=== PATIENT | male | born 1945 | race Caucasian/White ===

== ENCOUNTER → 2016-05-09 | Outpatient (CLI) | payer MEDICARE, OTHER | LOC: SL 13:00 | PROVIDERS: ATTEND Family Medicine | DX: G47.33 Obstructive sleep apnea (adult) (pediatric) (principal) ==

== ENCOUNTER → 2016-10-02 | Outpatient (CLI) | payer MEDICARE, OTHER | END | disposition home or self-care (01) | LOC: GMAB 14:54 | PROVIDERS: ATTEND Family Medicine | DX: R06.02 Shortness of breath (principal) ==

== ENCOUNTER → 2017-01-22 | Outpatient (CLI) | payer MEDICARE, OTHER ==
--- NOTE | 2017-01-22 10:04 | RAD ---
EXAM DESCRIPTION: Pelvis CLINICAL HISTORY: 71 years, Male, HIP PAIN COMPARISON: FINDINGS: No fracture. Pelvic ring intact. Moderate narrowing and spurring superior laterally right hip. Surgical clips over the scrotal region noted. IMPRESSION: Mild degenerative change. No fracture. Electronically signed by: Callum Bell MD 01/22/2017 10:02 AM CDT
--- NOTE | 2017-01-22 10:05 | RAD ---
EXAM DESCRIPTION: Knee, left Complete CLINICAL HISTORY: 71 years, Male, KNEE PAIN COMPARISON: FINDINGS: No fracture or dislocation. Moderate narrowing the patellofemoral joint space with superior lateral spurring. Slight narrowing medially. IMPRESSION: Moderate degenerative change without fracture or dislocation Electronically signed by: Callum Bell MD 01/22/2017 10:04 AM CDT
== END | disposition home or self-care (01) ==
LOC: RAD 08:40
PROVIDERS: ATTEND Orthopaedic Surgery
DX: M25.562 Pain in left knee (principal); M25.552 Pain in left hip

== ENCOUNTER → 2017-01-29 | Outpatient (CLI) | payer MEDICARE, OTHER | END | disposition home or self-care (01) | LOC: GMAB 10:30 | PROVIDERS: ATTEND Family Medicine | DX: R94.5 Abnormal results of liver function studies (principal); R79.9 Abnormal finding of blood chemistry, unspecified; Z85.46 Personal history of malignant neoplasm of prostate ==

== ENCOUNTER → 2017-02-06 | Outpatient (CLI) | payer MEDICARE, OTHER ==
--- NOTE | 2017-02-06 16:04 | US ---
EXAM DESCRIPTION: Abdomen,Complete: Ultrasound. CLINICAL HISTORY: ABNORMAL RESULTS OF LIVER FUNCTION STUDIES. COMPARISON: None Available. TECHNIQUE: Transabdominal scannin-dimensional and Doppler modes. FINDINGS: The gallbladder with echogenic stone in the dependent portion mobile with patient change in position. Stone diameter is 1.1 cm. Wall thickness 2.1 mm. No fluid around the gallbladder. Common bile duct caliber 5.4 mm which is within normal limits. No stones in the visualized portion of the duct. Not tender with transducer pressure. The liver demonstrates increased echogenicity; contour of the liver capsule is smooth where seen. No fluid around the liver. Intrahepatic biliary ducts are non-dilated. Craniocaudal dimension in the mid-clavicular axis is 20.2 cm. Pancreas head, body, and tail normal in size and echogenicity. Pancreatic duct is not dilated. Normal Doppler vascularity in the mona hepatis. Abdominal aorta diameter proximal 2.3 cm. Mid 1.5 cm. Distal 1.6 cm. IVC visualized; normal caliber. Spleen normal echogenicity; except for calcified nodules measuring 4.4 and 4.7 mm. Long axis measurement is 11.4 cm. No fluid in the spleno-renal fossa. Right kidney measures 10.6 x 5.5 x 4.4 cm . Mid renal cortical thickness within normal. Echogenicity normal with no hydronephrosis, no large calcifications, and no perinephric fluid. Contour smooth. Vascularity normal. Ureter not visualized. Left kidney measures 12.1 x 5.7 x 5.6 cm , normal mid renal cortical thickness. Echogenicity normal with no hydronephrosis, no large calcifications, and no perinephric fluid. Contour smooth. Vascularity normal. Ureter not visualized. IMPRESSION: 1. Cholelithiasis with no wall thickening or pericholecystic fluid. Nontender. Normal common bile duct. 2. Moderate hepatomegaly with fatty infiltration/steatosis cumulative result of obesity and a variety of metabolic and toxic conditions. Normal caliber of the abdominal aorta. Intrahepatic biliary dilatation. No ascites. 3. Normal size of the spleen containing calcifications/granulomas. No ascites. Normal ultrasound of the pancreas. 4. Normal ultrasound of the bilateral kidneys. Electronically signed by: Jayson Owens MD 02/06/2017 4:03 PM CDT
== END | disposition home or self-care (01) ==
LOC: US 11:21
PROVIDERS: ATTEND Family Medicine
DX: R94.5 Abnormal results of liver function studies (principal)

== ENCOUNTER 2017-03-08 04:53 | Day surgery (SDC) | payer MEDICARE, OTHER ==
--- NOTE | 2017-03-07 14:41 | RAD ---
EXAM DESCRIPTION: Chest,2 Views CLINICAL HISTORY: 71 years,Male,PREOP COMPARISON: None FINDINGS: There are no consolidations. No effusions. No pneumothoraces. No nodules. Bony elements unremarkable for age. IMPRESSION: Unremarkable chest for age Electronically signed by: Guy Foster MD 03/07/2017 2:40 PM SUBWAY TRAIN OPERATOR
[2017-03-08] MEDS ORDERED: LACTATED RINGERS 1,000 ML ONE ×2 (06:42→12:21)
[2017-03-08] MEDS ORDERED: levoFLOXacin 500MG IV 100 ML IVPB ONE (06:42)
[2017-03-08] MEDS ORDERED: LIDOCAINE 1% 10 ML VIAL INJ ONE (07:00)
[2017-03-08] MEDS ORDERED: PROPOFOL 200 MG/20 ML VIAL IV ONE (07:00)
[2017-03-08] MEDS ORDERED: ATROPINE SULFATE 0.4 MG/ML 1ML VIAL ONE (07:00)
[2017-03-08] MEDS ORDERED: NITROGLYCERIN 2% 1 GM UD TOP ONE (07:00)
[2017-03-08] MEDS ORDERED: NEOSTIGMINE METHYLSULFATE 1 MG/ML ML IV ONE (07:00)
[2017-03-08] MEDS ORDERED: fentaNYL CITRATE INJ 50 MCG/ML AMP ONE (07:50)
[2017-03-08] MEDS ORDERED: ROCURONIUM BROMIDE 10 MG/ML VIAL ONE (07:51)
[2017-03-08] MEDS ORDERED: LIDOCAINE 2 % GEL 5 ML TUBE TOP ONE (07:51)
[2017-03-08] MEDS ORDERED: BUPIVACAINE 0.5% W/EPI 30 ML VIAL INJ ONE (08:10)
[2017-03-08] MEDS ORDERED: SODIUM CHLORIDE 0.9% 50 ML VIAL ONE (08:11)
[2017-03-08] MEDS ORDERED: HEPARIN SODIUM (PORCINE) 10,000 UNITS/ML VIAL ONE ×2 (08:11→08:20)
[2017-03-08] MEDS ORDERED: levoFLOXacin 500MG IV 500 MG/100 ML BAG IVPB ONE (08:38)
[2017-03-08] MEDS ORDERED: METOCLOPRAMIDE HCL INJ 10 MG/2 ML VIAL ONE (11:53)
[2017-03-08] MEDS ORDERED: ONDANSETRON INJ 4 MG/2 ML VIAL ONE (11:53)
--- NOTE | 2017-03-08 11:55 | OP ---
DATE OF PROCEDURE: 03/08/17 PREOPERATIVE DIAGNOSIS: 1. Symptomatic cholelithiasis. 2. Fatty infiltration of the liver. POSTOPERATIVE DIAGNOSIS: 1. Symptomatic cholelithiasis. 2. Fatty infiltration of the liver. 3. Chronic cholecystitis. PROCEDURE: 1. Laparoscopic cholecystectomy with intraoperative cholangiography using fluoroscopy. 2. Wedge biopsy, right lobe of the liver. SURGEON: Edin Stout MD. INSIDE TECHNICAL SALES REPRESENTATIVE: None. ANESTHESIA: Local infiltration of 0.25% Marcaine with epinephrine and general endotracheal anesthesia. INDICATION: The patient is a 71-year-old male who has a history of right upper quadrant castro with radiation to the back and nausea. There is some fatty food intolerance with bloating. His ultrasound was positive for gallstones and fatty infiltration of the liver. He has a history of elevated liver functions without history of hepatitis. The patient was brought to the Surgical Suite today for cholecystectomy and wedge biopsy of the liver under general anesthesia after the risks, benefits and alternatives to the procedure were discussed and accepted. FINDINGS: The gallbladder was minimal intrahepatic. There were multiple adhesions to the gallbladder. Intraoperative cholangiography revealed free flow into the duodenum with no filling defects or strictures noted. There was a long cystic duct. There was one stone. The fatty infiltration of the liver seemed to be quite early. The midline inferior port was placed above the umbilicus through a previous port site and the fascia there had pulled away from the mesh placed by previous herniorrhaphy in the distant past. No other pathology was identified. DESCRIPTION OF PROCEDURE: After adequate general endotracheal anesthesia was obtained, the patient was prepped and draped in the usual sterile manner. A dose of Levaquin had been given. Surgical time-out was taken. The supraumbilical area was infiltrated with local anesthesia. A previous incision was incised with a sharp knife. Dissection using blunt dissection and S- retractors revealed a fascial defect with minimal peritoneum. This was entered and the 12 mm port was placed and held in place with the 20 mL balloon. CO2 was then insufflated until a pressure of 12 mmHg was reached and the abdomen was tympanitic in all four quadrants. When this was done, the laparoscope was introduced. The abdomen was inspected with the previously noted findings. The patient was then placed in reverse Trendelenburg position, turned to the left side. The upper abdominal ports were placed under direct vision in the usual manner. The gallbladder was grasped, retracted anteriorly and laterally. Adhesions to the gallbladder were taken down using blunt dissection and electrocautery. Eventually, the neck of the gallbladder was grasped and retracted laterally. The triangle of Calot was then explored with the cystic duct and cystic artery identified and isolated. The cystic duct was hemoclipped once proximally. The cystic artery was hemoclipped twice proximally and once distally. A small incision was made in the cystic duct. The cholangiogram catheter was introduced through a separate stab wound in the right upper quadrant, introduced into the cystic duct and clipped in place. Cholangiograms were then taken using fluoroscopy which revealed free flow into the duodenum with no filling defects or strictures noted. At this time, the cystic duct catheter was removed. The cystic duct was hemoclipped three times distally and divided between the hemoclips. The cystic artery was divided. The gallbladder was then dissected free from the gallbladder bed of the liver using electrocautery. A small hole was made in the gallbladder and a significant amount of bile leaked out. This was aspirated. The gallbladder was then placed in an EndoCatch bag and removed from the supraumbilical port site in the usual manner under direct vision. While the gallbladder was dissected from the gallbladder bed of the liver, two other vessels were identified in the gallbladder bed of the liver and these were clipped. When this was done, the subhepatic space and subphrenic space were irrigated copiously with saline until the effluent was minimally bile-tinged and blood- tinged. At this point, a wedge biopsy of the right lobe of the liver was performed using scissors. The specimen was removed and sent for pathologic evaluation. Hemostasis was obtained in this area with electrocautery turned to 50. When this was done, hemostasis was noted to be adequate. Again, there was irrigation to remove the bloody effluent. The mona hepatis was inspected and no bleeding or bile leak was identified. The gallbladder bed of the liver was inspected and no significant bleeding was noted there. At this point, the upper abdominal ports were removed and good hemostasis was noted. At this point , the CO2, the laparoscope and the supraumbilical port were removed. The supraumbilical port site fascial defect, which was there prior to the operation , was closed with two [id number] sutures of 0 Prolene. When these were tightened and tied, subcutaneous tissue was irrigated with saline. Skin edges were approximated with 4-0 Vicryl subcuticular sutures, benzoin and Steri- Strips. Sterile dressings were applied. The patient was awakened and taken to the Recovery Room in good and stable condition. Estimated blood loss was approximately 50 to 75 mL. All sponge, needle and instrument counts were correct. [facility][id number] [facility]
[2017-03-08] MEDS ORDERED: HYDROcodone 5MG/APAP 325MG 1 EA TAB ONE (13:49)
[2017-03-08 14:18] VITALS: BP 118/57; TEMP 97.8; O2SAT 95
== END 2017-03-08 14:10 | disposition home or self-care (01) ==
LOC: AMB 04:53
PROVIDERS: ATTEND Surgery
DX: K80.10 Calculus of gallbladder with chronic cholecystitis without obstruction (principal); K76.0 Fatty (change of) liver, not elsewhere classified; I25.10 Atherosclerotic heart disease of native coronary artery without angina pectoris; I10 Essential (primary) hypertension; E11.9 Type 2 diabetes mellitus without complications; E78.5 Hyperlipidemia, unspecified; E66.9 Obesity, unspecified; G47.30 Sleep apnea, unspecified; Z68.42 Body mass index [BMI] 45.0-49.9, adult; Z87.891 Personal history of nicotine dependence; Z95.5 Presence of coronary angioplasty implant and graft; Z88.0 Allergy status to penicillin; Z79.02 Long term (current) use of antithrombotics/antiplatelets; Z79.82 Long term (current) use of aspirin; Z79.84 Long term (current) use of oral hypoglycemic drugs; Z79.899 Other long term (current) drug therapy
CPT/HCPCS: 00790; 36415; 36416; 47379; 47563; 71020; 76000; 80053; 81001; 82948; 85025; 88304; 88307; 88313; 93005; A4216; J1644; J1956; J2405; J2710; J2765; J3010; J3490; J7120

== ENCOUNTER → 2017-05-02 | Outpatient (CLI) | payer MEDICARE, OTHER | END | disposition home or self-care (01) | LOC: LAB.O 11:17 | PROVIDERS: ATTEND Internal Medicine Gastroenterology | DX: R94.5 Abnormal results of liver function studies (principal); K76.0 Fatty (change of) liver, not elsewhere classified ==

== ENCOUNTER → 2017-05-22 | Outpatient (CLI) | payer MEDICARE, OTHER | END | disposition home or self-care (01) | LOC: GMAB 14:09 | PROVIDERS: ATTEND Family Medicine | DX: R79.9 Abnormal finding of blood chemistry, unspecified (principal) ==

== ENCOUNTER 2017-06-06 05:35 | Day surgery (SDC) | payer MEDICARE, OTHER ==
[2017-06-06] MEDS ORDERED: LACTATED RINGERS 1,000 ML ONE ×2 (05:53→08:39)
[2017-06-06] MEDS ORDERED: fentaNYL CITRATE INJ 50 MCG/ML AMP ONE (09:07)
[2017-06-06] MEDS ORDERED: MIDAZOLAM INJ 2 MG/2 ML VIAL ONE (09:07)
--- NOTE | 2017-06-06 09:48 | OP ---
DATE OF PROCEDURE: 06/06/17 PREPROCEDURE DIAGNOSIS: 1. Colorectal cancer screening. POSTPROCEDURE DIAGNOSIS: 1. Ascending sessile polyp, removed. 2. Fair to poor bowel preparation, especially in the ascending colon and transverse colon. 3. Medium sized non-bleeding internal hemorrhoids. PROCEDURE: 1. Colonoscopy. SURGEON: Christiano Almeida MD SEDATION: The patient was sedated via IV propofol by the Anesthesia Department. COMPLICATIONS: No immediate complications. CONSENT: Prior to the procedure, risks, benefits and alternatives to the therapy were discussed with the patient. The risks included bleeding, infection , perforation and . The patient agreed to the procedure and signed a consent. PREPROCEDURE ANESTHESIA ASSESSMENT: An examination revealed no contraindication to sedation. Airway examination demonstrated a Mallampati class type 2, ASA grade assessment type 2. Throughout the procedure, the patient's blood pressure, pulse and oxygen saturation were monitored continuously. PROCEDURE: The patient was placed in the left lateral decubitus position and a rectal examination was performed. The rectal examination was within normal limits. The Olympus colonoscope was passed in the anus, rectum, traversing the colon to the level of the cecum as identified by the appendiceal orifice. The scope was retracted and the mucosa was visualized. The entirety of the exam was performed with direct visualization. Retroflexion was performed in the rectum. Preparation quality was fair to poor, specifically in the ascending and transverse colon. The withdrawal time was greater than 6 minutes. The patient tolerated the procedure well. FINDINGS: 1. An 8 mm sessile polyp was seen in the ascending colon, removed through hot snare. The polyp was completely retrieved. 2. Non-bleeding internal hemorrhoids of medium size seen in retroflexion. 3. Moderate to large amount of semi-liquid and solid stool was seen throughout the colon, predominantly in the cecum and ascending colon as well as in the transverse colon. Copious lavage with sterile water was performed, however, only fair to poor visualization was achieved. 4. Normal terminal ileum. RECOMMENDATION: 1. Return home. 2. Resume prior diet. 3. Repeat colonoscopy no later than a year for screening purposes. 4. Followup pathology results. 5. Return to my office in the 2 to 4 weeks. 6. Findings were thoroughly discussed with the patient and the patient's family member. 7. Return to referring physician as previously scheduled. #[id number] [facility]
[2017-06-06] MEDS ORDERED: PROPOFOL 200 MG/20 ML VIAL IV ONE (10:00)
[2017-06-06] MEDS ORDERED: LIDOCAINE 1% 10 ML VIAL INJ ONE (10:00)
[2017-06-06 11:26] VITALS: BP 110/73; TEMP 97; O2SAT 98
== END 2017-06-06 10:30 | disposition home or self-care (01) ==
LOC: AMB 05:35
PROVIDERS: ATTEND Internal Medicine Gastroenterology
DX: Z12.11 Encounter for screening for malignant neoplasm of colon (principal); D12.2 Benign neoplasm of ascending colon; K64.8 Other hemorrhoids; E11.9 Type 2 diabetes mellitus without complications; E66.01 Morbid (severe) obesity due to excess calories; E78.00 Pure hypercholesterolemia, unspecified; K74.0 Hepatic fibrosis; G47.30 Sleep apnea, unspecified; Z68.42 Body mass index [BMI] 45.0-49.9, adult; I25.10 Atherosclerotic heart disease of native coronary artery without angina pectoris; Z95.5 Presence of coronary angioplasty implant and graft; Z85.46 Personal history of malignant neoplasm of prostate; Z88.0 Allergy status to penicillin; Z79.84 Long term (current) use of oral hypoglycemic drugs; Z79.899 Other long term (current) drug therapy
CPT/HCPCS: 00812; 36416; 45385; 82948; 88305; J2250; J3010; J3490; J7120

== ENCOUNTER → 2017-11-19 | Outpatient (CLI) | payer MEDICARE, OTHER | LOC: GMAE 16:46 | PROVIDERS: ATTEND Family Medicine | DX: R41.82 Altered mental status, unspecified (principal) ==

== ENCOUNTER → 2018-03-07 | Outpatient (CLI) | payer MEDICARE, OTHER ==
--- NOTE | 2018-03-07 16:48 | US ---
US HEAD NECK SOFT TISSUE CLINICAL STATEMENT: THYROID NODULE. No palpable mass, no previous thyroid surgery or therapy. COMPARISON: None . Technique note: Technically difficult study due to patient body habitus. FINDINGS: Size right thyroid lobe: 4.1 x 1.7 x 1.6 cm Size left thyroid lobe: 3.1 x 1.7 x 1.6 cm Size isthmus: 0.3 cm Estimated total number of nodules greater than or equal to 1 cm: 3. Heterogeneous echotexture. No distinct cysts. Nodule 1: Size: 1.3 x 1.1 x 0.1 cm Location: Right Mid Composition: solid or almost completely solid: 2 points Echogenicity: hypoechoic: 2 points Shape: wider than tall: 0 points Margins: ill-defined: 0 points Echogenic foci: none: 0 points ACR Total Points: 4; ACR TI-RADS risk category: TR4 - moderately suspicious nodule. Nodule 2: Size: 1.0 x 0.8 x 0.7 cm Location: Left Mid Composition: solid or almost completely solid: 2 points Echogenicity: hypoechoic: 2 points Shape: wider than tall: 0 points Margins: smooth: 0 points Echogenic foci: none: 0 points ACR Total Points: 4; ACR TI-RADS risk category: TR4 - moderately suspicious nodule. Nodule 3: Size: 1.4 x 1.1 x 1.1 cm Location: Left Lower Composition: solid or almost completely solid: 2 points Echogenicity: hypoechoic: 2 points Shape: wider than tall: 0 points Margins: ill-defined: 0 points Echogenic foci: none: 0 points ACR Total Points: 4; ACR TI-RADS risk category: TR4 - moderately suspicious nodule. No distinct solid mass or cyst in the soft tissues abutting the thyroid gland. No parenchymal edema or calcifications. No overlying skin changes. No abnormal vascularity. IMPRESSION: 1. Nodule 1: ACR TI-RADS 2017 Category TR4. Recommend: Follow-up ultrasound in 1 year. [facility] Best Practice guidelines are based upon the ACR TI-RADS 2017 recommendations below. 2. Nodule 2: ACR TI-RADS 2017 Category TR 4. Recommend: Follow-up ultrasound in one year. 3. Nodule 3: ACR TI-RADS 2017 Category TR4. Recommend: Follow-up ultrasound in 1 year. 4. Soft tissue surrounding the thyroid gland is unremarkable. *ACR TI-RADS 2017 Recommendations: TR1: No FNA or follow up TR2: No FNA or follow up TR3: FNA if >/= 2.5 cm, follow up if 1.5 - 2.4 cm in 1, 3, and 5 years TR4: FNA if >/= 1.5 cm, follow up if 1.0 - 1.4 cm in 1, 2, 3, and 5 years TR5: FNA if >/= 1.0 cm, follow up if 0.5 - 0.9 cm every year for 5 years ACR TI-RADS recommends that no more than two nodules with the highest ACR TI-RADS total point should be biopsied and no more than four nodules should be followed. Electronically signed by: Jayson Owens MD 03/07/2018 4:47 PM [facility]
== END ==
LOC: US 11:00
PROVIDERS: ATTEND Family Medicine
DX: E04.1 Nontoxic single thyroid nodule (principal)

== ENCOUNTER → 2018-03-30 | Outpatient (CLI) | payer MEDICARE, OTHER ==
--- NOTE | 2018-03-30 09:24 | RAD ---
PROCEDURE: Ribs,Left 3 Views Clinical History: FALL RIB PAIN Indication: Same as above Comparison: Chest x-ray done on 03/06/2017 . Technique: Three Views of the left sided ribs were done Findings: There is no visualization of acute or healing fractures or focal bony lesions involving the left sided ribs. The left clavicle and the adjacent shoulder joint do not show any evidence of bony trauma. There is no visualization of any periosteal reactions. There are no discrete airspace infiltrates, pneumothoraces or pleural effusions in the visualized lung de dios. The soft tissues are radiographically unremarkable. There is no visualization of any radiopaque foreign bodies in the evaluated soft tissues. Nondisplaced acute rib fractures are frequently radiographically occult. Impression: Negative for acute bony trauma involving the left-sided ribs Location of Interpretation: Teleradiology Electronically signed by: Magno Theodore MD 03/30/2018 9:23 AM MANAGER IN[employer]ST[employer]ATIONS Workstation: [id number]
== END ==
LOC: RAD 08:54
PROVIDERS: ATTEND Nurse Practitioner Family
DX: S23.41XA Sprain of ribs, initial encounter (principal)

== ENCOUNTER → 2018-10-17 | Outpatient (CLI) | payer MEDICARE, OTHER ==
--- NOTE | 2018-10-18 17:13 | RAD ---
EXAM DESCRIPTION: Ankle,Left 3 Views CLINICAL HISTORY: M25.572 COMPARISON: 02 October 2018 TECHNIQUE: 3 views left FINDINGS: A mildly comminuted oblique fracture of the distal left fibula is observed. There is lateral displacement of the distal fracture fragments. There is slight disruption of the ankle mortise. Exam reveals evidence of old avulsive trauma of the distal tibia. Plantar and Achilles enthesophytes are observed. Soft tissue swelling is observed about the ankle. An ankle joint effusion is seen. Mild intertarsal arthritis is observed. IMPRESSION: A comminuted fracture of the distal left fibula is observed with slight lateral displacement of the distal fracture fragments is slight disruption of the ankle mortise. Electronically signed by: Guy Campbell MD 10/18/2018 5:11 PM CDT
== END ==
LOC: RAD 10:05
PROVIDERS: ATTEND Orthopaedic Surgery
DX: S82.832A Other fracture of upper and lower end of left fibula, initial encounter for closed fracture (principal)

== ENCOUNTER 2018-10-22 05:41 | Day surgery (SDC) | payer MEDICARE, OTHER ==
--- NOTE | 2018-10-18 17:13 | RAD ---
EXAM DESCRIPTION: Chest,2 Views CLINICAL HISTORY: 73 years Male, PRE OP COMPARISON: February TECHNIQUE: PA/lateral FINDINGS: There is no cardiac or pulmonary abnormality. The lungs are clear. There is no effusion. IMPRESSION: 1. Normal two-view chest. Electronically signed by: Guy Campbell MD 10/18/2018 5:11 PM CDT
[2018-10-22] MEDS ORDERED: LACTATED RINGERS 1,000 ML ONE (11:00)
[2018-10-22] MEDS ORDERED: VANCOMYCIN HCL INJ 1,000 MG VIAL IVPB ONE (11:53)
[2018-10-22] MEDS ORDERED: SODIUM CHL 0.9% 100ML MINI-BAG 100 ML IVPB ONE (11:53)
[2018-10-22] MEDS ORDERED: ceFAZolin SODIUM 1 GM VIAL ONE (11:54)
[2018-10-22] MEDS ORDERED: SODIUM CHLORIDE 0.9% 250ML 250 ML ONE (11:54)
[2018-10-22 12:58] VITALS: BP 110/56; TEMP 98.7; O2SAT 95
== END 2018-10-22 12:45 | disposition home or self-care (01) ==
LOC: AMB 05:41
PROVIDERS: ATTEND Orthopaedic Surgery
DX: S82.899A Other fracture of unspecified lower leg, initial encounter for closed fracture (principal); Z88.0 Allergy status to penicillin; Z53.9 Procedure and treatment not carried out, unspecified reason; Z79.899 Other long term (current) drug therapy
CPT/HCPCS: 36415; 71046; 80048; 80307; 81001; 85025; 87070; 87077; 87186; 93005; J0690; J3370; J7050; J7120

== ENCOUNTER 2018-10-30 05:45 | Day surgery (SDC) | payer MEDICARE, OTHER ==
--- NOTE | 2018-10-18 08:30 | HP ---
CHIEF COMPLAINT: Ankle pain. HISTORY OF PRESENT ILLNESS: Hunter is a 73-year-old male with a history of pain in the ankle that is secondary to a fall on 10/02/18. He had the acute onset of pain and was placed in a splint. He complains of pain today after having been in a splint. When I initially saw him, I asked him to be non-weightbearing, but he did have an incident where he was up on the ankle and felt acute and unrelenting pain. He has x-rays today that show that he has displaced fracture relative to previous. PAST SURGICAL HISTORY: None. MEDICATIONS: 1. Sertraline. 2. Lipitor. ALLERGIES: PENICILLIN. CODE STATUS: Full code. IMMUNIZATIONS: Up to date. SOCIAL HISTORY: The patient does not smoke or use any illicit drugs. He does drink on occasion. FAMILY HISTORY: None pertinent to today's complaint. REVIEW OF SYSTEMS: Negative except as indicated in the History of Present Illness. PHYSICAL EXAMINATION: VITAL SIGNS: Blood pressure 120/66. Pulse 58. Height 5'9". Weight 300 pounds. MENTAL STATUS: The patient is awake, alert, and is able to give a good history and participate in the physical. The patient is oriented to person, place and time. SKIN: Normal tone and turgor. HEENT: Normocephalic, atraumatic. Pupils equal, round and reactive. Mucosal membranes are moist. NECK: Normal range of motion. No thyromegaly, no lymphadenopathy. CHEST: Normal respiratory excursion. CARDIAC: Regular rate and rhythm. No murmurs, rubs or gallops. MUSCULOSKELETAL: He has bilateral upper extremities without evidence of trauma. There is no pain with range of motion of the upper extremities. There is no deformity. Sensation is intact bilaterally. They are warm and well perfused. The right lower extremity shows no pain with range of motion. He has intact sensation. It is warm and well perfused. The left lower extremity shows some swelling distally. There is no overall malalignment or deformity. Today, he does have some pain over the medial aspect whereas previously he did not have any significant pain medially. The skin does appear to be intact diffusely. The knee and hip show full active painless range of motion. IMAGING: X-rays were taken today and compared to previous show displacement of the fracture. ASSESSMENT: 1. Ankle fracture. PLAN: The plan at this point is for open reduction and internal fixation of his distal fibula. We have discussed the risks, benefits, and alternatives to that and the patient has given informed consent. [facility][id number] [facility]
[2018-10-30] MEDS ORDERED: SODIUM CHL 0.9% 100ML MINI-BAG 100 ML IVPB ONE (08:01)
[2018-10-30] MEDS ORDERED: LACTATED RINGERS 1,000 ML ONE ×2 (08:02→12:51)
[2018-10-30] MEDS ORDERED: ceFAZolin SODIUM 1 GM VIAL ONE ×2 (08:02→09:27)
[2018-10-30] MEDS ORDERED: SODIUM CHLORIDE 0.9% 250ML 250 ML ONE (08:14)
[2018-10-30] MEDS: VANCOMYCIN HCL INJ 1,000 MG VIAL IVPB ONE ×2 (08:40→10:02)
[2018-10-30] MEDS ORDERED: VANCOMYCIN HCL INJ 1,000 MG VIAL IVPB ONE (09:27)
[2018-10-30] MEDS ORDERED: MIDAZOLAM INJ 2 MG/2 ML VIAL ONE (09:32)
[2018-10-30] MEDS ORDERED: KETAMINE HCL 100 MG/ML VIAL ONE (09:32)
[2018-10-30] MEDS ORDERED: fentaNYL CITRATE INJ 50 MCG/ML AMP ONE ×2 (09:32→12:48)
[2018-10-30] MEDS ORDERED: METOPROLOL TARTRATE INJ 5 MG/5 ML VIAL IV ONE (10:00)
[2018-10-30] MEDS ORDERED: WATER FOR INJ 10 ML VIAL INJ ONE (10:00)
[2018-10-30] MEDS ORDERED: VECURONIUM BROMIDE 10 MG VIAL IV ONE (10:00)
[2018-10-30] MEDS ORDERED: PROPOFOL 200 MG/20 ML VIAL IV ONE (10:00)
[2018-10-30] MEDS ORDERED: BUPIVACAINE 0.5% 30 ML VIAL INJ ONE ×2 (11:33→13:24)
[2018-10-30] MEDS ORDERED: BUPIVACAINE LIPOSOME 13.3 MG/ML VIAL INJ ONE (11:33)
[2018-10-30] MEDS ORDERED: LACTATED RINGERS 1,000 ML IVS ONE (12:21)
[2018-10-30] MEDS ORDERED: HYDROmorphone HCL INJ 2 MG/ML VIAL ONE (12:34)
[2018-10-30] MEDS ORDERED: HYDROmorphone HCL INJ 2 MG/ML VIAL IV ONE ×10 (12:35→14:00)
[2018-10-30] MEDS ORDERED: fentaNYL CITRATE INJ 50 MCG/ML AMP IV ONE ×4 (12:50→14:05)
--- NOTE | 2018-10-30 14:19 | RAD ---
EXAM DESCRIPTION: Ankle,Left 2 Views CLINICAL HISTORY: 73 years Male, POSTOP COMPARISON: October 02, 2018 FINDINGS: Two views of the left ankle show postoperative changes including a plate and screw fixation device over the lateral aspect of the left fibula distally. No hardware other surgical complication. No acute fracture or malalignment. Old nondisplaced distal left fibular fracture best seen on the lateral view. Calcaneal enthesophyte formation at the plantar fascia and Achilles tendon insertions. IMPRESSION: Uncomplicated postoperative changes in the left fibula Electronically signed by: Todd Stevenson MD 10/30/2018 2:17 PM CDT
[2018-10-30] MEDS ORDERED: HYDROcodone 5MG/APAP 325MG 1 EA TAB PO ONE (14:25)
[2018-10-30] MEDS ORDERED: HYDROcodone 5MG/APAP 325MG 1 EA TAB ONE (14:28)
[2018-10-30 15:36] VITALS: BP 142/84; TEMP 98.2; O2SAT 92
--- NOTE | 2018-11-01 07:32 | RAD ---
EXAM DESCRIPTION: Single intraoperative radiograph CLINICAL HISTORY: ORIF LEFT ANKLE FINDINGS/ IMPRESSION: Fluoroscopy time 48 seconds. Single intraoperative radiograph ankle fracture fixation Electronically signed by: Farzad Sauceda MD 11/01/2018 7:29 AM CDT
--- NOTE | 2018-11-05 09:23 | OP ---
DATE OF PROCEDURE: 10/30/18 PREOPERATIVE DIAGNOSIS: 1. Left fibular fracture. POSTOPERATIVE DIAGNOSIS: 1. Left fibular fracture. PROCEDURE: 1. Open reduction and internal fixation of fibula. SURGEON: Krishna Summers MD. INDUCTION HEAT TREATER: Jayson Souza CST, SA-C. ANESTHESIA: Local with sedation. COMPLICATIONS: None. FINDINGS: Displaced fracture of the distal fibula. INDICATION: Mr. Olivarez has a history of a fall with twisting injury that resulted in severe pain in the ankle. He was placed in a splint and improved, but subsequently had displacement of that. Although he had no pain medially, he subsequently developed pain medially with this fracture and, therefore, it represented in essence a bimalleolar ankle fracture variant. As such, we discussed the risks, benefits and alternatives to operative therapy and informed consent was obtained for ORIF. PROCEDURE: The patient was brought to the Operating Room and placed in the supine position. General anesthesia was induced. The patient's leg was sterilely prepped and draped. Following prepping and draping, an incision was made on the lateral border of the fibula. Dissection was carried down to the fibula and the periosteum was elevated. The fracture site was identified and debrided. A single lag screw was placed from anterior superior to posterior inferior. Following that, a plate was applied to the lateral border and sequentially both cortical screws and cancellous locking screws were placed. The ankle was stressed under fluoroscopic imaging and there was no widening of the mortise and there was no translation of the talus. The fibula was anatomically reduced. The wound was very thoroughly irrigated and the tissues were closed over the plate without undue tension. Sterile dressings were placed. The patient was awoken from anesthesia and taken to Recovery. POSTOPERATIVE PLAN: He will be non-weightbearing and will followup with us in 2 days. He will keep the ankle elevated. #[id number] [facility]
== END 2018-10-30 15:25 | disposition home or self-care (01) ==
LOC: AMB 05:45
PROVIDERS: ATTEND Orthopaedic Surgery
DX: S82.832A Other fracture of upper and lower end of left fibula, initial encounter for closed fracture (principal); Z88.0 Allergy status to penicillin; Z79.899 Other long term (current) drug therapy
CPT/HCPCS: 01480; 27792; 73600; 76000; A4216; J0690; J1170; J2250; J3010; J3370; J3490; J7050; J7120

== ENCOUNTER → 2018-11-07 | Outpatient (CLI) | payer MEDICARE, OTHER ==
--- NOTE | 2018-11-07 14:08 | RAD ---
EXAM DESCRIPTION: Ankle,Left 3 Views CLINICAL HISTORY: S89.392A COMPARISON: 30 October 2018 TECHNIQUE: 3 views left FINDINGS: Soft tissue swelling is observed about the left ankle. A plate and screws are seen bridging a prior fracture of the distal fibula. No hardware failure is seen. Achilles and plantar enthesophytes are observed. A small joint effusion is evident. The ankle mortise is intact. No acute fracturing is detected. IMPRESSION: ORIF distal left fibular fracture. No significant interval change is noted. Electronically signed by: Guy Campbell MD 11/07/2018 2:06 PM CDT
== END ==
LOC: RAD 10:40
PROVIDERS: ATTEND Orthopaedic Surgery
DX: S89.392A Other physeal fracture of lower end of left fibula, initial encounter for closed fracture (principal)

== ENCOUNTER → 2018-12-05 | Outpatient (CLI) | payer MEDICARE, OTHER ==
--- NOTE | 2018-12-05 15:10 | RAD ---
EXAM DESCRIPTION: Ankle,Left 3 Views: CR/DR/XR CLINICAL HISTORY: 73 years Male CLOSED FX OF DISTAL FIBULA COMPARISON: Review left ankle 11/07/2018. TECHNIQUE: 3 VIEWS left ankle. AP. Lateral. Oblique. FINDINGS: Prior ORIF left fibula and lateral malleolus. Hardware stable position. Bony alignment is unchanged. Ankle mortise is congruent. Minimal irregularity of the medial malleolus is stable. No abnormal radiodense objects in the soft tissues or joint spaces. IMPRESSION: Stable ORIF for left fibular fracture. No bony or hardware complications. Left ankle mortise is congruent. Electronically signed by: Jayosn Owens MD 12/05/2018 3:09 PM CDT
== END ==
LOC: RAD 09:35
PROVIDERS: ATTEND Orthopaedic Surgery
DX: S89.392D Other physeal fracture of lower end of left fibula, subsequent encounter for fracture with routine healing (principal)

== ENCOUNTER → 2019-01-02 | Outpatient (CLI) | payer MEDICARE, OTHER ==
--- NOTE | 2019-01-02 12:20 | RAD ---
EXAM DESCRIPTION: Ankle,Left 3 Views CLINICAL HISTORY: 73 years Male, CLOSED FX OF DISTAL FIBULA COMPARISON: Radiographs of the left ankle dated 12/05/2018. TECHNIQUE: AP, oblique and lateral radiographs. FINDINGS: The visualized bones appear well mineralized. No acute fracture or dislocation. The ankle mortise is intact. Plate and screw fixation of the distal fibula is identified. Mild diffuse soft tissue swelling of the left ankle. Plantar and posterior calcaneal spurs are identified. IMPRESSION: Plate and screw fixation of the distal left fibula. Mild diffuse soft tissue swelling. Electronically signed by: Savanna Beckham MD 01/02/2019 12:18 PM CDT
== END ==
LOC: RAD 10:23
PROVIDERS: ATTEND Orthopaedic Surgery
DX: S89.392D Other physeal fracture of lower end of left fibula, subsequent encounter for fracture with routine healing (principal); Z98.890 Other specified postprocedural states

== ENCOUNTER → 2019-01-17 | Outpatient (CLI) | payer MEDICARE, OTHER ==
--- NOTE | 2019-01-18 20:42 | RAD ---
EXAM DESCRIPTION: Ankle,Left 3 Views: CR/DR/XR CLINICAL HISTORY: 73 years Male CLOSED FRACTURE OF DISTAL FIBULA COMPARISON: January 02, 2019 left ankle. TECHNIQUE: 3 VIEWS AP. Lateral. Oblique. Left ankle. FINDINGS: ORIF left fibula and lateral malleolus with lateral plate and screws and fixation screw. Stable since the prior study. Bone around the hardware unremarkable with fracture line less distinct. Irregular appearance of the cortex of the medial malleolus is stable. No soft tissue swelling. No abnormal radiodense objects in the soft tissues or joint spaces. IMPRESSION: ORIF distal left fibular fracture. No hardware or bony complications. Electronically signed by: Jayson Owens MD 01/18/2019 8:41 PM CDT
== END ==
LOC: RAD 10:03
PROVIDERS: ATTEND Orthopaedic Surgery
DX: S89.392D Other physeal fracture of lower end of left fibula, subsequent encounter for fracture with routine healing (principal); Z98.890 Other specified postprocedural states

== ENCOUNTER → 2019-01-30 | Outpatient (CLI) | payer MEDICARE, OTHER ==
--- NOTE | 2019-01-31 09:13 | RAD ---
EXAM DESCRIPTION: Ankle,Left 3 Views CLINICAL HISTORY: 73 years, Male, CLOSED FX OF DISTAL TIBIA COMPARISON: 01/17/2019 TECHNIQUE: AP/lateral/oblique of the left ankle FINDINGS/IMPRESSION: Left distal fibula ORIF with side plate and interlocking screw fixation securing a healing distal fibular fracture which demonstrate interval progressive callus formation. No hardware fracture or displacement. Stable osseous alignment. Medial malleolus cortical irregularity is unchanged. Dorsal and plantar calcaneal enthesophyte with mild distal Achilles tendinosis. Electronically signed by: Tomas Grissom DO 01/31/2019 9:11 AM CDT
== END ==
LOC: RAD 10:46
PROVIDERS: ATTEND Orthopaedic Surgery
DX: S89.392D Other physeal fracture of lower end of left fibula, subsequent encounter for fracture with routine healing (principal); M77.32 Calcaneal spur, left foot

== ENCOUNTER → 2019-02-13 | Outpatient (CLI) | payer MEDICARE, OTHER ==
--- NOTE | 2019-02-14 08:19 | RAD ---
EXAM DESCRIPTION: Ankle,Left 3 Views CLINICAL HISTORY: 73 years Male, OTHER PHYSEAL FRACTURE OF LOWER END OF LEFT FIBULA COMPARISON: January 30, 2019. TECHNIQUE: AP, oblique and lateral radiographs of the left ankle. FINDINGS: Mild diffuse osteopenia of the visualized bones noted. Postsurgical changes consistent with open reduction internal fixation of the lateral malleolus fracture with compression plate and screws. The hardware appears intact. Interval healing of the fractures noted with the no definite fracture line. No evidence of loosening. The ankle mortise is intact. A calcaneal spur is noted at the insertion of plantaris tendon. Enthesopathy changes noted at the insertion of rectal distended. Minimal soft tissue swelling noted surrounding the ankle joint. IMPRESSION: 1. Open reduction internal fixation of the left distal fibular fracture with compression plate and screws. Interval healing in comparison to prior radiograph. Hardware appears intact. No new acute fracture or dislocation. Electronically signed by: Antonio Erwin MD 02/14/2019 8:17 AM CDT
== END ==
LOC: RAD 11:36
PROVIDERS: ATTEND Orthopaedic Surgery
DX: S89.392D Other physeal fracture of lower end of left fibula, subsequent encounter for fracture with routine healing (principal); Z98.890 Other specified postprocedural states

== ENCOUNTER → 2019-03-21 | Outpatient (CLI) | payer MEDICARE, OTHER ==
--- NOTE | 2019-03-21 11:45 | RAD ---
EXAM DESCRIPTION: Ankle,Left 3 Views CLINICAL HISTORY: 73 years Male, PHYSEAL FRACTURE OF LOWER END OF LEFT FIBULA COMPARISON: 10 1672 Findings: Three views/radiographs Lateral plate and screws transfix the healing distal fibular fracture. No hardware complication. Stable alignment. No new fracture identified. Talar dome is unremarkable. Ankle mortise is symmetric. No focal soft tissue swelling. Otherwise unchanged. IMPRESSION: Healing internally fixated left fibular fracture. Electronically signed by: Hermes Cohn MD 03/21/2019 11:43 AM [facility]
== END | disposition home or self-care (01) ==
LOC: RAD 09:29
PROVIDERS: ATTEND Orthopaedic Surgery
DX: S82.392D Other fracture of lower end of left tibia, subsequent encounter for closed fracture with routine healing (principal); W18.30XA Fall on same level, unspecified, initial encounter

== ENCOUNTER → 2019-05-15 | Outpatient (CLI) | payer MEDICARE, OTHER ==
--- NOTE | 2019-05-15 11:43 | RAD ---
EXAM DESCRIPTION: Knee,Right Complete CLINICAL HISTORY: 73 years Male, PAIN IN RIGHT KNEE COMPARISON: None. Findings: Four radiographs Severe medial compartment narrowing with lateral tibial translation. Tricompartmental osteophytes. No significant joint effusion. Patellar enthesophytes. Lateral patellar subluxation and tilt. Shallow femoral trochlea. No acute fracture or dislocation is identified. Medial femoral condyle osteochondral lesion spanning a distance of 1.4 cm. No intra-articular loose body is identified radiographically. IMPRESSION: Advanced right knee osteoarthritis with preferential involvement of the medial compartment. Electronically signed by: Hermes Cohn MD 05/15/2019 11:41 AM [facility]
--- NOTE | 2019-05-15 11:46 | RAD ---
EXAM DESCRIPTION: Pelvis CLINICAL HISTORY: 73 years Male, PAIN IN RIGHT HIP COMPARISON: January 22, 2017 FINDINGS: Single AP pelvis shows no displaced pelvic fracture. The hip and sacroiliac joints are fairly well-maintained, small osteophytes arise from the acetabular margins bilaterally. The pubic symphysis is unremarkable. Subtle vascular calcifications. IMPRESSION: Mild degenerative changes in both hips without acute abnormality. Electronically signed by: Todd Stevenson MD 05/15/2019 11:44 AM [facility]
== END ==
LOC: RAD 09:10
PROVIDERS: ATTEND Orthopaedic Surgery
DX: M16.0 Bilateral primary osteoarthritis of hip (principal); M17.11 Unilateral primary osteoarthritis, right knee

== ENCOUNTER → 2019-09-23 | Outpatient (CLI) | payer MEDICARE, OTHER | LOC: LAB.O 10:31 | PROVIDERS: ATTEND Orthopaedic Surgery | DX: Z01.818 Encounter for other preprocedural examination (principal) ==

== ENCOUNTER 2019-10-07 05:29 | Inpatient (IN) | payer MEDICARE, OTHER ==
[2019-10-07] MEDS ORDERED: KETAMINE HCL 100 MG/ML VIAL ONE ×2 (06:34→10:12)
[2019-10-07] MEDS ORDERED: HYDROmorphone HCL INJ 2 MG/ML VIAL ONE ×2 (06:34→10:12)
[2019-10-07] MEDS ORDERED: ACETAMINOPHEN IV 1000MG 100 ML ONE (06:35)
[2019-10-07] MEDS ORDERED: DEXAMETHASONE INJ 10 MG/ML VIAL ONE (07:00)
[2019-10-07] MEDS ORDERED: PROPOFOL 200 MG/20 ML VIAL IV ONE (07:00)
[2019-10-07] MEDS ORDERED: EPINEPHrine HCL AMP 1 MG/ML AMP ONE (07:00)
[2019-10-07] MEDS ORDERED: diphenhydrAMINE HCL 50 MG/ML VIAL ONE (07:00)
[2019-10-07] MEDS ORDERED: MAGNESIUM SULFATE INJ 1 GM/2 ML VIAL ONE (07:00)
[2019-10-07] MEDS ORDERED: SODIUM CHLORIDE 0.9% 50 ML VIAL ONE (07:00)
[2019-10-07] MEDS ORDERED: LACTATED RINGERS 1,000 ML ONE (08:15)
[2019-10-07] MEDS ORDERED: TRANEXAMIC ACID 1,000 MG/10 ML VIAL ONE ×2 (08:15→08:16)
[2019-10-07] MEDS ORDERED: SODIUM CHLORIDE 0.9% 100ML 100 ML IVPB ONE (08:15)
[2019-10-07] MEDS ORDERED: SODIUM CHLORIDE 0.9% 250ML 250 ML ONE (08:15)
[2019-10-07] MEDS ORDERED: SODIUM CHL 0.9% 100ML MINI-BAG 100 ML IVPB ONE (08:15)
[2019-10-07] MEDS ORDERED: ceFAZolin SODIUM 1 GM VIAL ONE (08:15)
[2019-10-07] MEDS ORDERED: VANCOMYCIN HCL INJ 1,000 MG VIAL IVPB ONE ×3 (08:16→09:27)
[2019-10-07] MEDS ORDERED: TRANEXAMIC ACID 1,000 MG/10 ML VIAL IV ONE (09:15)
[2019-10-07] MEDS ORDERED: ACETAMINOPHEN 500 MG TAB PO PRN (09:41)
[2019-10-07] MEDS ORDERED: DEX 5% W/NACL 0.45% 1000ML 1,000 ML IVS PRN (09:41)
[2019-10-07] MEDS ORDERED: ALUMINUM & MAGNESIUM HYDROXIDE 30 ML UD PO PRN (09:41)
[2019-10-07] MEDS ORDERED: SODIUM CHLORIDE 0.9% (FLUSH) 10 ML SYG IV PRN (09:41)
[2019-10-07] MEDS ORDERED: BENZOCAINE-MENTH LOZ (CEPACOL) 1 EA LOZ MT PRN (09:41)
[2019-10-07] MEDS ORDERED: BISACODYL SUPPOSITORY 10 MG PR PRN (09:41)
[2019-10-07] MEDS ORDERED: PROMETHAZINE HCL INJ 25 MG in SODIUM CHLORIDE 0.9% 50ML 50 ML IVPB PRN (09:41)
[2019-10-07] MEDS ORDERED: PROMETHAZINE HCL INJ 12.5 MG in SODIUM CHLORIDE 0.9% 50ML 50 ML IVPB PRN (09:41)
[2019-10-07] MEDS ORDERED: ZOLPIDEM TARTRATE 5 MG TAB PO PRN (09:41)
[2019-10-07] MEDS ORDERED: MORPHINE SULFATE INJ 10 MG/ML VIAL IV PRN (09:41)
[2019-10-07] MEDS ORDERED: ACETAMINOPHEN 325 MG TAB PO PRN (09:41)
[2019-10-07] MEDS ORDERED: TRANEXAMIC ACID INJ 1,000 MG in SODIUM CHLORIDE 0.9% 100ML 100 ML IVPB ONE (09:41)
[2019-10-07] MEDS ORDERED: MORPHINE SULFATE INJ 10 MG/ML VIAL IM PRN (09:41)
[2019-10-07] MEDS ORDERED: MAGNESIUM HYDROXIDE 30 ML UD PO PRN (09:41)
[2019-10-07] MEDS ORDERED: NALOXONE HCL INJ 0.4 MG/ML VIAL IV PRN (09:41)
[2019-10-07] MEDS ORDERED: MORPHINE PCA 1 MG/ML 100 ML BAG IVPB SCH (10:00)
[2019-10-07] MEDS ORDERED: MIDAZOLAM INJ 5 MG/5 ML VIAL ONE (10:12)
[2019-10-07] MEDS: ceFAZolin SODIUM 1 GM VIAL ONE ×3 (11:26→12:16)
[2019-10-07] MEDS: BUPIVACAINE 0.5% 30 ML VIAL INJ ONE ×2 (11:27→11:57)
[2019-10-07] MEDS: VANCOMYCIN HCL INJ 1,000 MG VIAL IVPB ONE ×2 (11:27→12:16)
[2019-10-07] MEDS: BUPIVACAINE LIPOSOME 13.3 MG/ML VIAL INJ ONE ×2 (11:28→11:57)
[2019-10-07] MEDS ORDERED: CADD ADMIN SET 1 EA PKG INJ ONE (12:54)
[2019-10-07] MEDS ORDERED: MORPHINE PCA 1 MG/ML 100 ML BAG IVPB ONE (13:15)
[2019-10-07] MEDS: IV SET AND CAP CHANGE INJ INJ SCH (15:56)
--- NOTE | 2019-10-07 16:03 | RAD ---
EXAM DESCRIPTION: Knee,Right 1 or 2 Views CLINICAL HISTORY: TKA COMPARISON: May 15, 2019 IMPRESSION: 2 views of the right knee show interval recent postsurgical changes from knee arthroplasty with cement fixation of the tibial femoral components. No complicating features are identified. Soft tissue emphysema from recent surgery is seen. Electronically signed by: Darwin Marcano MD 10/07/2019 4:01 PM CDT
[2019-10-07] MEDS: ceFAZolin SODIUM 2 GM in SODIUM CHLORIDE 0.9% 100ML 100 ML IVPB SCH (16:28)
[2019-10-07] MEDS: CELECOXIB 100 MG CAP PO SCH (16:29)
[2019-10-07] MEDS: diphenhydrAMINE HCL 50 MG/ML VIAL IV PRN (16:29)
[2019-10-07] MEDS: VANCOMYCIN HCL INJ 1,000 MG in SODIUM CHLORIDE 0.9% 250ML 250 ML IVPB SCH (18:49)
[2019-10-07] MEDS ORDERED: ENOXAPARIN SODIUM 30 MG/0.3 ML SYG SUBCU ONE (20:12)
[2019-10-07] MEDS: DOCUSATE CALCIUM 240 MG CAP PO SCH (20:31)
[2019-10-07] MEDS: ENOXAPARIN SODIUM 30 MG/0.3 ML SYG SUBCU SCH (22:16)
[2019-10-08] MEDS: ceFAZolin SODIUM 2 GM in SODIUM CHLORIDE 0.9% 100ML 100 ML IVPB SCH ×2 (00:01→10:22)
[2019-10-08] MEDS: TEMAZEPAM 15 MG CAP PO PRN ×2 (00:08→21:59)
[2019-10-08] MEDS: traMADol HCL 50 MG TAB PO PRN (04:01)
[2019-10-08] MEDS: CYCLOBENZAPRINE HCL 10 MG TAB PO PRN ×2 (04:01→21:44)
[2019-10-08] MEDS: diphenhydrAMINE HCL 50 MG/ML VIAL IV PRN ×3 (04:02→22:13)
[2019-10-08] MEDS: VANCOMYCIN HCL INJ 1,000 MG in SODIUM CHLORIDE 0.9% 250ML 250 ML IVPB SCH (05:54)
[2019-10-08] MEDS: ONDANSETRON INJ 4 MG/2 ML VIAL IV PRN (08:38)
[2019-10-08] MEDS: MAGNESIUM OXIDE 400 MG TAB PO SCH (09:33)
[2019-10-08] MEDS: CELECOXIB 100 MG CAP PO SCH ×2 (09:33→17:10)
[2019-10-08] MEDS: SERTRALINE HCL 50 MG TAB PO SCH (09:34)
[2019-10-08] MEDS: LISINOPRIL 10 MG TAB PO SCH (09:47)
[2019-10-08] MEDS: ENOXAPARIN SODIUM 30 MG/0.3 ML SYG SUBCU SCH ×2 (10:24→22:32)
--- NOTE | 2019-10-08 12:02 | CONS ---
SUPERVISING PHYSICIAN: Charly Severino MD DATE OF CONSULTATION: 10/07/19 REASON FOR CONSULTATION: Osteoarthritis of the right knee status post right total knee arthroplasty. HISTORY OF PRESENT ILLNESS: This is a 74-year-old male patient who has had a long history of osteoarthritis of the right knee. He has tried conservative measures without relief of his pain. Therefore, he requested Dr. Krishna Summers, orthopedic surgeon, for operative intervention. He was admitted today to have a right total knee arthroplasty. He had no problems intraoperatively and I am seeing him postoperatively on the Medical/Surgical Floor. PAST MEDICAL HISTORY: 1. Obstructive sleep apnea on CPAP. 2. Borderline diabetes mellitus, type 2. 3. Depression. 4. Hypertension. 5. Hyperlipidemia. 6. Prostate cancer. PAST SURGICAL HISTORY: 1. Prostatectomy. 2. Cholecystectomy. 3. Tonsillectomy and adenoidectomy. 4. Coronary artery stent placement in 2017. 5. Hernia repair. 6. Left ankle open reduction and internal fixation. OUTPATIENT MEDICATIONS: 1. Ascorbic acid. 2. Vitamin D3. 3. Meloxicam. 4. Multivitamins. 5. [place] 3 fatty acids. 6. Lisinopril. 7. Zoloft. ALLERGIES: PENICILLIN. FAMILY HISTORY: Noncontributory. SOCIAL HISTORY: He is retired. He is . He has four children. He quit smoking in 2009 and he drinks alcohol on a social basis. He denies any illicit drug use. REVIEW OF SYSTEMS: All negative except as per history of present illness. PHYSICAL EXAMINATION: VITAL SIGNS: Temperature 97.4, heart rate 53, blood pressure 136/85, respiratory rate 16, O2 saturation 92% on room air. GENERAL: This is a 74-year-old obese male patient that is lying in his hospital bed. He is in no acute distress. HEENT: Normocephalic, atraumatic. Pupils are equal and reactive. Oropharynx is clear. NECK: Supple without mass. RESPIRATORY: Essentially clear to auscultation bilaterally. CARDIOVASCULAR: Regular rate and rhythm. GASTROINTESTINAL: Abdomen is soft, nondistended, nontender. Bowel sounds are positive. EXTREMITIES: He has an Iceman and dressing to his right knee. Bilateral pedal pulses are palpable at +2. NEUROLOGIC: Awake, alert and oriented times three. Cranial nerves II-XII are grossly intact as tested. LABORATORY: Blood sugar has been 108 to 122. UDS was negative. RADIOLOGY: Reports are as per EMR. IMPRESSION: 1. Osteoarthritis of the right knee status post right total knee arthroplasty performed by Dr. Krishna Summers, orthopedic surgeon, postoperative day #0. 2. Hypertension. 3. Depression. 4. Diabetes mellitus, type 2, borderline. 5. Coronary artery disease. 6. History of prostate cancer. PLAN: We will continue present supportive care. Orthopedic issues will be per Dr. Krishna Summers, orthopedic surgeon. He will start with physical therapy tomorrow for strengthening and conditioning. I have restarted his home medications as appropriate. Encourage good pulmonary hygiene. We will continue to monitor the patient closely and follow as needed. #[id number] [facility]
--- NOTE | 2019-10-08 13:16 | RAD ---
Intraoperative views of the right knee Indication: RIGHT TKA Comparison: None Impression: Partial visualization of placement of right total knee arthroplasty. 1 images submitted. Fluoroscopy time 2 seconds. Electronically signed by: Simone Clarke MD 10/08/2019 1:14 PM CDT
[2019-10-08] MEDS: HYDROcodone 5MG/APAP 325MG 1 EA TAB PO PRN (17:17)
[2019-10-08] MEDS: DOCUSATE CALCIUM 240 MG CAP PO SCH (21:15)
[2019-10-09] MEDS: traMADol HCL 50 MG TAB PO PRN ×3 (03:35→19:48)
[2019-10-09] MEDS: HYDROcodone 5MG/APAP 325MG 1 EA TAB PO PRN ×5 (03:36→20:53)
[2019-10-09] MEDS: CYCLOBENZAPRINE HCL 10 MG TAB PO PRN ×2 (05:45→19:49)
[2019-10-09] MEDS: CELECOXIB 100 MG CAP PO SCH ×2 (07:57→16:20)
[2019-10-09] MEDS: SERTRALINE HCL 50 MG TAB PO SCH (07:57)
[2019-10-09] MEDS: LISINOPRIL 10 MG TAB PO SCH (07:57)
[2019-10-09] MEDS: MAGNESIUM OXIDE 400 MG TAB PO SCH (07:57)
--- NOTE | 2019-10-09 08:12 | PN ---
SUPERVISING PHYSICIAN: Charly Severino MD DATE: 10/08/19 SUBJECTIVE: The patient is sitting up in his chair. He has no complaints. He felt his physical therapy went well. He also feels his pain is fairly well controlled. Earlier this morning, he had some chest discomfort and diaphoresis. Since he has had a stent in the past, cardiac enzymes and EKG were done. They were both negative and he has had no more discomfort. OBJECTIVE: VITAL SIGNS: Temperature 97.8, heart rate 76, blood pressure 133/74, respiratory rate 16, O2 saturation 97% on 2 liters nasal cannula. RESPIRATORY: Essentially clear to auscultation bilaterally. CARDIAC: Regular rate and rhythm. GASTROINTESTINAL: Abdomen is soft, nondistended, nontender. Bowel sounds are positive. EXTREMITIES: He has a dressing to his right knee that is dry and intact. Bilateral pedal pulses are palpable at +2. NEUROLOGIC: Awake, alert and oriented times three. LABORATORY: Hemoglobin 13.9, hematocrit 42.1. Electrolytes show sodium 133, potassium 4, chloride 99, carbon dioxide 25, BUN 20, creatinine 1. Cardiac enzymes were negative. All other labs and films have been reviewed via the EMR. ASSESSMENT: 1. Osteoarthritis of the right knee status post right total knee arthroplasty performed by Dr. Krishna Summers, orthopedic surgeon, postoperative day #1. 2. Hypertension. 3. Depression. 4. Diabetes mellitus, type 2, borderline. 5. Coronary artery disease. 6. History of prostate cancer. PLAN: We will continue present supportive care. Orthopedic issues will be per Dr. Krishna Summers, orthopedic surgeon. We will continue with his physical therapy for strengthening and conditioning. Encourage good pulmonary hygiene. We will continue to monitor the patient closely and follow as needed. #[id number] [facility]
--- NOTE | 2019-10-09 08:24 | PN ---
DATE: 10/08/19 SUBJECTIVE: Mr. Olivarez is doing well and his pain is well controlled. OBJECTIVE: Afebrile. Vital signs stable. Dressing is clean, dry and intact. ASSESSMENT: Status post total knee arthroplasty. PLAN: The plan is to begin weightbearing as tolerated. #[id number] [facility]
--- NOTE | 2019-10-09 08:26 | PN ---
DATE: 10/09/19 SUBJECTIVE: Mr. Olivarez is doing well. OBJECTIVE: Afebrile. Vital signs stable. Wounds are clean. There are no signs or symptoms of infection. ASSESSMENT: Status post total knee arthroplasty. PLAN: The plan is to continue with weightbearing as tolerated. #[id number] [facility]
--- NOTE | 2019-10-09 08:30 | OP ---
DATE OF PROCEDURE: 10/07/19 PREOPERATIVE DIAGNOSIS: 1. Right knee osteoarthritis. POSTOPERATIVE DIAGNOSIS: 1. Right knee osteoarthritis. PROCEDURE: 1. Total knee arthroplasty. SURGEON: Krishna Summers MD. POTAT[employer] CHIP PACKAGING MACHINE OPERATOR: Jayson Souza CST, SA-C. ANESTHESIA: General anesthesia. COMPLICATIONS: None. FINDINGS: Severe osteoarthritis of the knee. INDICATION: Mr. Olivarez has a history of knee pain for which he has had conservative measures. Unfortunately, the conservative measures have failed and he has requested operative intervention. After discussing the risks, benefits and alternatives to that, the patient has given informed consent for total knee arthroplasty. PROCEDURE: The patient was brought to the Operating Room and placed in supine position. General anesthesia was induced and the patient's leg was sterilely prepped and draped. Following prepping and draping, the distal femur was exposed and using an intramedullary guide, the distal femoral cut was made. The appropriate sized cutting block was measured, pinned into place, and the anterior, posterior, and chamfer cuts were made. The ACL was transected and the tibia was subluxed. Both the medial and lateral menisci were removed. An intramedullary guide was used to make the proximal tibial cut. The appropriate sized base plate was placed and a trial polyethylene was placed. The trial femur was placed, the knee was reduced, and the knee was taken through a range of motion. The knee was stable in anterior, posterior, varus and valgus stress. The patella tracked anatomically without evidence of subluxation or dislocation. After trialing, the trial components were removed and the bony surfaces were thoroughly irrigated with saline. Following irrigation, the surfaces were dried and the final components were cemented into place. The excess cement was removed and the remaining cement was allowed to cure. The knee was again taken through a range of motion to confirm stability. The wound was then irrigated with saline and closure was performed using PDS to approximate the arthrotomy followed by closure of the subcutaneous tissues with a combination of running and interrupted Monocryl sutures. Sterile dressing was placed. The patient was awoken from anesthesia and taken to Recovery. COMPONENTS: [place] Triathlon knee, size 5 femur, size 5 tibia, 9 mm insert. POSTOPERATIVE PLAN: The patient will be weight-bearing as tolerated on postoperative day 1. [facility][id number] [facility]
--- NOTE | 2019-10-09 11:46 | PN ---
SUPERVISING PHYSICIAN: hCarly Sevreino MD DATE: 10/09/19 SUBJECTIVE: The patient has had no further diaphoresis or chest tightness. He felt his physical therapy was going well. He has no complaints of nausea, vomiting, diarrhea or constipation. OBJECTIVE: VITAL SIGNS: Temperature 97.4, heart rate 89, blood pressure 122/76, respiratory rate 20, O2 saturation 93% on BiPAP. RESPIRATORY: Essentially clear to auscultation bilaterally. CARDIAC: Regular rate and rhythm. GASTROINTESTINAL: Abdomen is soft, nondistended, nontender. Bowel sounds are positive. EXTREMITIES: He has a dressing to his right knee that is dry and intact. Bilateral pedal pulses are palpable at +2. NEUROLOGIC: Awake, alert and oriented times three. LABORATORY: There are no labs or films to report at this time. ASSESSMENT: 1. Osteoarthritis of the right knee status post right total knee arthroplasty performed by Dr. Krishna Summers, orthopedic surgeon, postoperative day #2. 2. Hypertension. 3. Depression. 4. Diabetes mellitus, type 2, borderline. 5. Coronary artery disease. 6. History of prostate cancer. PLAN: We will continue present supportive care. Orthopedic issues will be per Dr. Krishna Summers, orthopedic surgeon. We will continue with his physical therapy for strengthening and conditioning. On discharge, he will go to [facility] for outpatient physical therapy. Plan for discharge tomorrow. Continue to encourage good pulmonary hygiene. We will continue to monitor the patient closely and follow as needed. [facility][id number] [facility]
[2019-10-09] MEDS: SODIUM CHLORIDE 0.9% (FLUSH) 10 ML SYG IV SCH ×2 (12:31→20:53)
[2019-10-09] MEDS: ENOXAPARIN SODIUM 30 MG/0.3 ML SYG SUBCU SCH ×2 (12:31→23:00)
[2019-10-09] MEDS: ONDANSETRON INJ 4 MG/2 ML VIAL IV PRN (17:05)
[2019-10-09] MEDS: DOCUSATE CALCIUM 240 MG CAP PO SCH (20:53)
[2019-10-10] MEDS: TEMAZEPAM 15 MG CAP PO PRN (01:18)
[2019-10-10] MEDS: CYCLOBENZAPRINE HCL 10 MG TAB PO PRN (05:38)
[2019-10-10] MEDS: HYDROcodone 5MG/APAP 325MG 1 EA TAB PO PRN ×2 (05:38→10:30)
[2019-10-10] MEDS: LISINOPRIL 10 MG TAB PO SCH (09:42)
[2019-10-10] MEDS: SERTRALINE HCL 50 MG TAB PO SCH (09:42)
[2019-10-10] MEDS: MAGNESIUM OXIDE 400 MG TAB PO SCH (09:42)
[2019-10-10] MEDS: CELECOXIB 100 MG CAP PO SCH (09:42)
[2019-10-10] MEDS: IV SET AND CAP CHANGE INJ INJ SCH (09:43)
[2019-10-10] MEDS: SODIUM CHLORIDE 0.9% (FLUSH) 10 ML SYG IV SCH (09:44)
[2019-10-10 10:11] VITALS: BP 151/72; TEMP 97.9; O2SAT 97
[2019-10-10] MEDS: ENOXAPARIN SODIUM 30 MG/0.3 ML SYG SUBCU SCH (10:30)
[2019-10-10] MEDS ORDERED: BISACODYL SUPPOSITORY 10 MG PR ONE (21:00)
[2019-10-10] MEDS ORDERED: MAGNESIUM HYDROXIDE 30 ML UD PO ONE (21:00)
--- NOTE | 2019-10-20 08:02 | DS ---
SUPERVISING PHYSICIAN: Charly Severino MD ADMISSION DIAGNOSIS: 1. Osteoarthritis of the right knee status post right total knee arthroplasty performed by Dr. Krishna Summers, orthopedic surgeon, postoperative day #0. 2. Hypertension. 3. Depression. 4. Diabetes mellitus, type 2, borderline. 5. Coronary artery disease. 6. History of prostate cancer. DISCHARGE DIAGNOSIS: ASSESSMENT: 1. Osteoarthritis of the right knee status post right total knee arthroplasty performed by Dr. Krishna Summers, orthopedic surgeon, postoperative day #3. 2. Hypertension. 3. Depression. 4. Diabetes mellitus, type 2, borderline. 5. Coronary artery disease. 6. History of prostate cancer. HISTORY OF PRESENT ILLNESS: This is a 74-year-old male patient who has had a long history of osteoarthritis of the right knee. He has tried conservative measures without relief of his pain. Therefore, he requested Dr. Krishna Summers, orthopedic surgeon, for operative intervention. He was admitted today to have a right total knee arthroplasty. He had no problems intraoperatively and I am seeing him postoperatively on the Medical/Surgical Floor. LABORATORY: Postoperative hemoglobin1 3.9 and hematocrit 42.1. CMP showed normal liver function. Electrolytes showed sodium 133, potassium 4.1, creatinine 1.0. Urine drug screen was negative for all substances tested. MICROBIOLOGY: MRSA surveillance culture was negative for MRSA. RADIOLOGY: Please refer to pre and postoperative radiologic studies. CONSULTATIONS: Hospitalist services, please see consultation report for details. PROCEDURES: Right total knee arthroplasty. Please refer to Dr. Summers's operative note for details. HOSPITAL COURSE: Mr. Olivarez was admitted for elective right total knee arthroplasty. He had no complications intraoperatively. Postoperatively, he did well. It was felt on the day of discharge that he had progressed well enough with physical therapy to continue with outpatient management. Therefore, he was discharged. PLAN: Mr. Olivarez was discharged on 10/10/19 to continue with outpatient physical therapy. He was given a prescription for pain medicine including hydrocodone written by Dr. Summers. Diet was his usual diet. Activity to ambulate with a walker per physical therapy. He may shower, no tub baths. Medications prescribed on discharged included Xarelto 10 mg daily for 8 days and [facility] prescription written by Dr. Summers. All other medications prior to hospitalization were continued. CONDITION ON DISCHARGE: Stable and improved. DISPOSITION: The patient was discharged home. [facility][id number] [facility]
== END 2019-10-10 12:15 | disposition home or self-care (01) | DRG 470 ==
LOC: AMB 05:29 → MS 13:30
PROVIDERS: ADMIT Orthopaedic Surgery; ATTEND Orthopaedic Surgery
PROC: 0SRC0J9 Replacement of Right Knee Joint with Synthetic Substitute, Cemented, Open Approach (ICD-10-PCS; principal; 2019-10-07 10:22)
DX: M17.11 Unilateral primary osteoarthritis, right knee (principal); Z68.41 Body mass index [BMI] 40.0-44.9, adult; I10 Essential (primary) hypertension; R73.03 Prediabetes; I25.10 Atherosclerotic heart disease of native coronary artery without angina pectoris; G47.33 Obstructive sleep apnea (adult) (pediatric); F32.9 Major depressive disorder, single episode, unspecified; E78.5 Hyperlipidemia, unspecified; E66.01 Morbid (severe) obesity due to excess calories; Z95.5 Presence of coronary angioplasty implant and graft; Z85.46 Personal history of malignant neoplasm of prostate; Z88.0 Allergy status to penicillin; Z79.1 Long term (current) use of non-steroidal anti-inflammatories (NSAID); Z87.891 Personal history of nicotine dependence; Z79.899 Other long term (current) drug therapy